=== PATIENT | male | born 1970 | race Two or more races ===

== ENCOUNTER 2025-07-22 06:27 | Day surgery (SDC) | payer OTHER, SELFPAY ==
[2025-07-09 10:08] VITALS: BMI 31.8
[2025-07-09 11:34] LABS: Hematocrit 40.0 % (39.0-52.0); Hemoglobin 13.6 g/dL (13.0-18.0); Mean Corp Hgb Conc. 34.0 g/dL (33.0-37.0); Mean Corpuscular Volume 81.6 fL (80.0-94.0); Platelet Count 298 10^3/uL (130-400); Red Cell Dist. Width 13.2 % (11.5-14.5)
[2025-07-09 12:06] LABS: ALT (SGPT) 25 U/L (0-50); AST (SGOT) 42 U/L (17-59); Albumin 4.9 g/dl (3.5-5.0); Alkaline Phosphatase 65 U/L (38-126); Blood Urea Nitrogen 21 mg/dl (9-20); Calcium 9.7 mg/dl (8.4-10.2); Carbon Dioxide 32 mmol/L (22-30); Chloride 98 mmol/L (98-107); Estimated Creatinine Clearance 115 ml/min; Glucose 82 mg/dl (70-99); Potassium 4.6 mmol/L (3.5-5.1); Sodium 135 mmol/L (135-145); Total Protein 8.2 g/dl (6.3-8.2); eGFR > 60.00
[2025-07-22] VITALS (9 sets, daily range): BP systolic 114–130; BP diastolic 79–91; BMI 31.8
[2025-07-22] MEDS: NORMOSOL-R/PLASMALYTE-A 1000 IV (10:32)
[2025-07-22] MEDS: TYLENOL 1000 MG PO (10:32)
[2025-07-22] MEDS: TRANSDERM-SCOP 1 PATCH TRANSDERM (11:39)
[2025-07-22] MEDS: ZOFRAN 4 MG IV (13:10)
[2025-07-22] MEDS: SUBLIMAZE 50 MCG IV (13:10)
== END 2025-07-22 14:54 | disposition home or self-care (01) ==
LOC: SDS 06:27
PROVIDERS: ATTENDING PHYSICIAN Otolaryngology; FAMILY PHYSICIAN Physician Assistant Medical
DX: J34.89 Other specified disorders of nose and nasal sinuses (principal); J39.2 Other diseases of pharynx; J34.2 Deviated nasal septum
CPT/HCPCS: 30520; 36415; 80053; 85027; 93005